=== PATIENT | male | born 1955 ===

== ENCOUNTER 2020-09-15 14:12 | Emergency (ER) | payer BC ==
--- NOTE | 2020-09-15 17:48 | Emergency Department Report ---
Blank Doc - Documentation Documentation: 65-year-old F [place] male presents emerge department complaining of a 2-day history of mid abdominal pain which radiates towards the right flank with no associated urinary symptoms. Does of nausea and also dyspepsia reports no fevers chills or sweats. No hemoptysis no hematemesis no hematochezia This initial assessment/diagnostic orders/clinical plan/treatment(s) is/are subject to change based on patients health status, clinical progression and re- assessment by fellow clinical providers in the ED. Further treatment and workup at subsequent clinical providers discretion. Patient/guardian urged not to elope from the ED as their condition may be serious if not clinically assessed and managed. Initial orders include: Labs, urinalysis
[2020-09-15] MEDS ORDERED: LIDOCAINE VISCOUS 2% 15 ML ORAL LIQD PO ONE (18:06)
[2020-09-15] MEDS ORDERED: ALUM-MAG HYDROXIDE-SIMETHICONE 200-200-20MG/5ML ORAL LIQD 30 ML PO ONE (18:06)
--- NOTE | 2020-09-15 18:12 | Emergency Department Report ---
ED Abdominal Pain HPI - General Chief Complaint: Abdominal Pain Stated Complaint: ABD PAIN Source: patient Mode of arrival: Ambulatory Limitations: No Limitations - History of Present Illness Initial Comments: Pt is a 65-year-old male presents to emerg department complaining of a 2-day history of mid abdominal pain which radiates towards the right flank with no associated urinary symptoms. Does of nausea and also dyspepsia reports no fevers chills or sweats. No hemoptysis no hematemesis no hematochezia, no sob, no dizziness, no light headedness, no back pain , no diaphoresis. denies medical hx. - Related Data Previous Rx's Medication Instructions Recorded Last Taken Type Omeprazole 20 mg PO DAILY #30 capsule. 09/15/20 Unknown Rx Sucralfate [Carafate] 1 gm PO ACHS 7 Days #28 tablet 09/15/20 Unknown Rx Allergies Allergy/AdvReac Type Severity Reaction Status Date / Time No Known Allergies Allergy Unverified 09/15/20 15:06 ED Review of Systems ROS: Stated complaint: ABD PAIN Other details as noted in HPI Constitutional: denies: chills, fever Eyes: denies: eye pain, eye discharge, vision change ENT: denies: ear pain, throat pain Respiratory: denies: cough, shortness of breath, wheezing Cardiovascular: denies: chest pain, palpitations Endocrine: no symptoms reported Gastrointestinal: abdominal pain. denies: nausea, diarrhea, constipation, hematemesis, melena Genitourinary: denies: urgency, dysuria, frequency, hematuria, discharge Musculoskeletal: denies: back pain, joint swelling, arthralgia Skin: denies: rash, lesions Neurological: denies: headache, weakness, paresthesias Psychiatric: denies: anxiety, depression Hematological/Lymphatic: denies: easy bleeding, easy bruising ED Past Medical Hx - Past Medical History Previous Medical History?: No - Surgical History Past Surgical History?: No - Social History Smoking Status: Never Smoker Substance Use Type: None - Medications Home Medications: Home Medications Medication Instructions Recorded Confirmed Last Taken Type Omeprazole 20 mg PO DAILY #30 capsule. 09/15/20 Unknown Rx Sucralfate [Carafate] 1 gm PO ACHS 7 Days #28 tablet 09/15/20 Unknown Rx ED Physical Exam - General Limitations: No Limitations General appearance: alert, in no apparent distress - Head Head exam: Present: atraumatic, normocephalic - Eye Eye exam: Present: normal appearance - ENT ENT exam: Present: normal exam - Neck Neck exam: Present: normal inspection, full ROM - Respiratory Respiratory exam: Present: normal lung sounds bilaterally. Absent: respiratory distress, wheezes, stridor, chest wall tenderness - Cardiovascular Cardiovascular Exam: Present: regular rate, normal rhythm, normal heart sounds. Absent: systolic murmur, diastolic murmur, rubs, gallop - GI/Abdominal GI/Abdominal exam: Present: soft, normal bowel sounds. Absent: distended, tenderness, guarding, rebound, rigid, bruit, hernia - Rectal Rectal exam: Present: deferred - Extremities Exam Extremities exam: Present: normal inspection, full ROM. Absent: tenderness - Back Exam Back exam: Present: normal inspection, full ROM. Absent: tenderness, CVA tenderness (R), CVA tenderness (L) - Neurological Exam Neurological exam: Present: alert, oriented X3, normal gait - Psychiatric Psychiatric exam: Present: normal affect, normal mood - Skin Skin exam: Present: warm, dry, intact, normal color. Absent: rash ED Course Vital Signs 09/15/20 15:08 Temperature 98.0 F Pulse Rate 94 H Respiratory 18 Rate Blood Pressure 171/105 O2 Sat by Pulse 98 Oximetry ED Medical Decision Making - Lab Data Result diagrams: 09/15/20 18:03 09/15/20 18:03 Labs 09/15/20 09/15/20 09/15/20 17:57 18:03 18:03 WBC 6.0 RBC 4.94 Hgb 15.6 H Hct 46.5 H MCV 94 MCH 32 MCHC 34 RDW 16.2 H Plt Count 156 Lymph % (Auto) 35.8 H [place] % (Auto) 11.7 H Eos % (Auto) 2.4 Baso % (Auto) 0.6 Lymph # (Auto) 2.1 [place] # (Auto) 0.7 Eos # (Auto) 0.1 Baso # (Auto) 0.0 Seg Neutrophils % 49.5 Seg Neutrophils # 3.0 Sodium 139 Potassium 4.0 Chloride 105.3 Carbon Dioxide 24 Anion Gap 14 BUN 11 Creatinine 0.9 Estimated GFR > 60 BUN/Creatinine Ratio 12 Glucose 85 Calcium 9.9 Total Bilirubin 0.60 AST 17 ALT 10 Alkaline Phosphatase 42 Total Protein 7.6 Albumin 4.0 Albumin/Globulin Ratio 1.1 Lipase 22 Urine Color Yellow Urine Turbidity Clear Urine pH 5.0 Ur Specific [place] 1.011 Urine Protein <15 mg/dl Urine Glucose (UA) Neg Urine Ketones Tr Urine Blood Neg Urine Nitrite Neg Urine Bilirubin Neg Urine Urobilinogen < 2.0 Ur Leukocyte Esterase Neg Urine WBC (Auto) 1.0 Urine RBC (Auto) 1.0 U Epithel Cells (Auto) 1.0 Urine Mucus Few - Radiology Data Radiology results: report reviewed, image reviewed Findings Reporting MD: Ramin Rodriguez Dictation Time: September 15, 2020 18:00 Clinical Radiologist: Not available Historical Society Director Date: ABDOMEN 3 VIEW(S) INDICATION / CLINICAL INFORMATION: Abdominal pain. COMPARISON: None FINDINGS: TUBES / LINES: None. BOWEL GAS PATTERN: No significant abnormality. FREE AIR / EXTRALUMINAL GAS: None seen. ADDITIONAL FINDINGS: No significant additional findings. CHEST: Lungs are clear. Heart size is normal. IMPRESSION: 1. No significant abnormality. Signer Name: Ramin Rodriguez MD Signed: 09/15/2020 6:00 PM Workstation Name: [id number] - Medical Decision Making pt advises that symptoms are relieved to 0/10 with medications given in ed. Pt i s tolerating po intake without n/v, there is no diarrhea, no fever or chills, plan: Tx for GERD, follow up with primary care doctor. Take medications as prescribed, pt verbalized agreement and understanding of discharge plan. pt with htn episode this visit denies hx of htn, there is no dizziness, no light headedness, no cp, no sob, on back pain, no diaphoresis, no n/v . will monitor bp and bring results to follow up pcp visit. Critical care attestation.: If time is entered above; I have spent that time in minutes in the direct care of this critically ill patient, excluding procedure time. ED Disposition Clinical Impression: GERD (gastroesophageal reflux disease) Qualifiers: Esophagitis presence: without esophagitis Qualified Code(s): K21.9 - Gastro- esophageal reflux disease without esophagitis Disposition: TO HOME OR SELFCARE Is pt being admited?: No Does the pt Need Aspirin: No Condition: Stable Instructions: Gastroesophageal Reflux Disease, Adult, Food Choices for Gastroesophageal Reflux Disease, Adult, [id number] Prescriptions: Sucralfate [Carafate] 1 gm PO ACHS 7 Days #28 tablet Omeprazole 20 mg PO DAILY #30 capsule.dr Referrals: NUBIA JAY MD [Staff Physician] - 3-5 Days Forms: Work/School Release Form(ED) Time of Disposition: 19:17
[2020-09-15 18:25] LABS: Basophils % (Auto) 0.6 % (0.0-1.8); Eosinophils # (Auto) 0.1 K/mm3 (0.0-0.4); Eosinophils % (Auto) 2.4 % (0.0-4.3); Hematocrit 46.5 % (35.5-45.6); Hemoglobin 15.6 gm/dl (11.8-15.2); Lymphocytes # (Auto) 2.1 K/mm3 (1.2-5.4); Lymphocytes % (Auto) 35.8 % (13.4-35.0); Mean Corpuscular HGB Conc 34 % (32-34); Mean Corpuscular Volume 94 fl (84-94); Monocytes # (Auto) 0.7 K/mm3 (0.0-0.8); Monocytes % (Auto) 11.7 % (0.0-7.3); Platelet Count 156 K/mm3 (140-440); Red Blood Count 4.94 M/mm3 (3.65-5.03); Red Cell Distribution Width 16.2 % (13.2-15.2)
[2020-09-15 18:35] LABS: Bilirubin,Urine NEG (Negative); Blood,Urine NEG (Negative); Color,Urine Yellow (Yellow); Mucus,Urine FEW /HPF; Protein,Urine <15 mg/dL mg/dL (Negative); Urobilinogen,Urine < 2.0 mg/dL (<2.0)
[2020-09-15 18:41] LABS: Alanine Aminotransferase 10 units/L (7-56); BUN/Creatinine Ratio 12; Blood Urea Nitrogen 11 mg/dL (9-20); Calcium 9.9 mg/dL (8.4-10.2); Hemolysis Index 14
--- NOTE | 2020-09-15 19:04 | XRay Report ---
ABDOMEN 3 VIEW(S) INDICATION / CLINICAL INFORMATION: Abdominal pain. COMPARISON: None FINDINGS: TUBES / LINES: None. BOWEL GAS PATTERN: No significant abnormality. FREE AIR / EXTRALUMINAL GAS: None seen. ADDITIONAL FINDINGS: No significant additional findings. CHEST: Lungs are clear. Heart size is normal. IMPRESSION: 1. No significant abnormality. Signer Name: Ramin Rodriguez MD Signed: 09/15/2020 7:00 PM Workstation Name: [id number]
[2020-09-16 04:55] VITALS: BP 164/87
== END 2020-09-15 19:40 | disposition home or self-care (01) ==
LOC: ED 14:12
DX: K21.9 Gastro-esophageal reflux disease without esophagitis (principal)
CPT/HCPCS: 36415; 74022; 80053; 81001; 83690; 85025